=== PATIENT | female | born 1970 | race Caucasian/White ===

== ENCOUNTER → 2017-07-14 | Outpatient (CLI) | payer BC ==
--- NOTE | 2017-07-16 15:13 | RADIOLOGY REPORT PS360 ---
DIG MAMM-SCREEN SUSY W/CAD CAD Screening COMPARISON: Digital mammograms 10/31/2014 INDICATION: There is a history of breast cancer in patient's paternal great ankle and the patient's mother, the mother after menopause TECHNIQUE: Standard CC and MLO images were obtained. R2 CAD reviewed. FINDINGS: The breasts are composed primarily of fat with minimal scattered fibroglandular densities in each breast. There is a mole marker right breast. There is no suspicious lesion in either breast and there are no suspicious microcalcifications. IMPRESSION: Fatty type breast parenchyma with no suspicious lesion seen recommend yearly follow-up BI-RADS CATEGORY: 1_Negative RECOMMENDED FOLLOWUP: 12M 12 MONTH FOLLOW-UP (A letter has been sent to the patient regarding results of the study.)
== END ==
LOC: RAD 07-09 16:30
DX: Z12.31 Encounter for screening mammogram for malignant neoplasm of breast (principal)